=== PATIENT | female | born 1970 | race Two or more races ===

== ENCOUNTER 2025-03-02 19:26 | Emergency (ER) | payer MEDICAID, SELFPAY ==
[2025-03-02 19:29] VITALS: BMI 39.4
[2025-03-02 20:24] VITALS: BP 136/87; PULSE 89; RESP 18; TEMP 36.6; O2SAT 99
--- NOTE | 2025-03-02 20:27 | XR_ITS ---
Examination: Hand, left 3 views Technique: Hand AP, oblique, lateral 3 views Date and time of exam: March 02, 2025 2105 hours INDICATIONS: Dog bite today to the hand with hand pain FINDINGS: Acute comminuted fracture proximal aspect fifth metacarpal with at least 4 mm offset at the fracture site No opaque foreign body IMPRESSION: Acute comminuted fractures fifth metacarpal
--- NOTE | 2025-03-02 20:29 | PD.EDANIML ---
ED Animal Bite RME/HPI General Chief Complaint: Animal Bite Stated Complaint: DOG BITE TO LEFT HAND Time Seen by Provider: 03/02/25 20:22 Arrival date/time: 03/02/25 19:26 RME / HPI RME / HPI narrative: 54-year-old female patient came in for evaluation regarding dog bite to the left hand. Patient was walking with her dog and another dog attacked her and patient sustained dog bite to the left hand, dorsal and palmar aspect. Patient is able to bend and extend the fingers without any limitation. Tetanus vaccination is 2 years old. Patient told me that if she will see the dog again she will remember it. Related Data Home Medications ?Medication ?Instructions ?Recorded ?Confirmed budesonide-formoterol HFA 160 2 puff inhalation BID 11/20/19 02/08/22 mcg-4.5 mcg/actuation aerosol inhaler (Symbicort) buspirone 15 mg tablet 15 mg PO TID 11/20/19 02/08/22 citalopram 40 mg tablet (Celexa) 40 mg PO QDAY 11/20/19 02/08/22 hydroxyzine HCl 25 mg tablet 25 mg PO QID PRN Anxiety 11/20/19 02/08/22 albuterol sulfate 90 mcg/actuation 2 puff inhalation QID PRN Dyspnea 04/28/20 02/08/22 aerosol inhaler ramipril 10 mg capsule 10 mg PO BID 04/28/20 02/08/22 alprazolam 0.25 mg tablet 0.25 mg PO QDAY 07/11/21 02/08/22 doxazosin 2 mg tablet 2 mg PO QDAY 07/11/21 02/08/22 ferrous sulfate 325 mg (65 mg 325 mg PO TID 07/11/21 02/08/22 iron) tablet hydrochlorothiazide 25 mg tablet 25 mg PO QDAY 07/11/21 02/08/22 Previous Rx's ?Medication ?Instructions ?Recorded ibuprofen 600 mg tablet 600 mg PO Q8H PRN pain #30 tabs 07/12/21 clindamycin HCl 300 mg capsule 300 mg PO Q6H #28 caps 03/02/25 ibuprofen 800 mg tablet 800 mg PO TID PRN pain #30 tabs 03/02/25 Allergies Allergy/AdvReac Type Severity Reaction Status Date / Time cefoxitin Allergy Verified 05/15/25 19:27 Review of Systems Review of Systems Narrative Review of Systems: Review of system reviewed and within normal limits except mentioned in HPI ED Exam Narrative Physical exam: VITAL SIGNS: Reviewed. GENERAL APPEARANCE: Alert and interactive, follows commands, no acute distress, HEAD AND FACE: Non-traumatic. ENT: PERRL, pink conjunctivitis, eyelid no trauma, Mucous membrane moist. NECK: Supple, nontender, no nuchal rigidity. GENITAL: Deferred. NEUROLOGICAL: Gross motor function intact sensory function intact, Appropriate for age. MUSCULOSKELETAL: low back nontender, full range of motion. EXTREMITIES: +1 cm laceration, left hand dorsal aspect and 1 cm also laceration left hand palmar aspect, full range of motion. SKIN: Color pink, dry, no rash, no lacerations, no abrasions, no contusions. LYMPHATICS: Deferred. Course Quality Measures none Orders Category Date Time Status XR hand LT 2V Stat Exams 03/02/25 20:27 Completed Clindamycin [Cleocin] Med 03/02/25 20:27 Discontinued 300 mg PO X1 ONE Ketorolac Inj [Toradol Inj] Med 03/02/25 20:27 Discontinued 30 mg IM X1 ONE Lidocaine 1% 20 ml [Xylocaine 1% 20 ML] Med 03/02/25 20:27 Discontinued 10 ml IM X1 ONE Vital Signs Vital signs: Vital Signs Temperature 98 F 03/02/25 20:24 Pulse Rate 89 03/02/25 20:24 Respiratory Rate 18 03/02/25 20:24 Blood Pressure 136/87 H 03/02/25 20:24 Pulse Oximetry (%) 99 03/02/25 20:24 Oxygen Delivery Method Room Air 03/02/25 20:24 Procedures -ED Laceration Laceration 1: Site: hand Size (cm): 1 Description: linear Depth: simple, single layer Local Anesthetic: lidocaine 1% Amount of anesthesia used (mL): 5 Pre-repair: wound explored and irrigated extensively (Patient hand was soaked with 1 L of NS with Betadine, I also washed the hand with 1 L of NS and Betadine) Skin layer closed with: nylon Size (cm): 4-0 Number of sutures: 3 Technique: simple, interrupted Animal Bite MDM Narrative MDM Narrative:: 54-year-old female patient came in for evaluation regarding dog bite to the left hand. Patient was walking with her dog and another dog attacked her and patient sustained dog bite to the left hand, dorsal and palmar aspect. Patient is able to bend and extend the fingers without any limitation. Tetanus vaccination is 2 years old. Patient told me that if she will see the dog again she will remember it. X-ray of the hand showed comminuted fracture of the fifth metacarpal. Results discussed with the patient. Patient received clindamycin p.o. Patient was advised to closely follow-up with PCP and for referral to hand surgeon for definitive management of the metacarpal fracture. Patient was also advised to return to emergency room for any sign of infection of the hand like pus like drainage, redness, swelling, pain Patient was placed on a boxer splint, distal neurovascular status for splinting. Patient data External records reviewed:: None Clinical information provided by:: patient Social determinants that could affect healthcare access:: none Patient has the following chronic illnesses:: None How is presenting disease/condition affected by chronic disease/condition?: no chronic disease Evaluation data The following diagnostics were reviewed and interpreted by me:: radiology exam(s) Lab and/or radiology exams considered but not ordered:: None Interpretation Summary: See results in MDM Medications / Prescriptions Medications or Prescriptions considered but not ordered:: None Medication administrations:: Medication Administration History Discontinued Medications Clindamycin HCl (Clindamycin 150 Mg Capsule) 300 mg PO X1 ONE Stop: 03/02/25 20:28 Last Admin: 03/02/25 21:02 Dose: 300 mg Documented By: Ketorolac Tromethamine (Ketorolac Inj 60 Mg/2 Ml Vial) 30 mg IM X1 ONE Stop: 03/02/25 20:28 Last Admin: 03/02/25 21:04 Dose: 30 mg Documented By: Lidocaine HCl (Lidocaine Hcl 1% 20 Ml Vial) 10 ml IM X1 ONE Stop: 03/02/25 20:28 Last Admin: 03/02/25 21:01 Dose: 10 ml Documented By: Toradol IM, clindamycin p.o. Consultations Consultation(s) initiated? (list below): No Diagnosis Differential diagnosis animal bite: bite by animal, dog bite and other (Fracture of the fifth metacarpal) Most likely diagnosis given after review of the tests above:: Fracture of the fifth metacarpal, dog bite Admission Indicated Admission indicated?: not indicated Admission Request Was there a request for admission?: No Disposition Plan Disposition Plan: Discharge Discharge Attestation Discharge Attestation: The patient was given an opportunity to ask questions and understood the discharge instructions. Discharge instructions specifically effects, indications for sooner follow up or return to the emergency department, and the expected course of current diagnosis. Patient condition: Stable Discharge Plan Plan Patient Disposition: HOME (Self Care) Discharge Disposition comment: Stable Prescriptions/Referrals Prescriptions/Med Rec: New clindamycin HCl 300 mg capsule 300 mg PO Q6H Qty: 28 0RF ibuprofen 800 mg tablet 800 mg PO TID PRN (Reason: pain) Qty: 30 0RF No Action alprazolam 0.25 mg Tablet 0.25 mg PO QDAY hydrochlorothiazide 25 mg Tablet 25 mg PO QDAY doxazosin 2 mg Tablet 2 mg PO QDAY ferrous sulfate 325 mg (65 mg iron) tablet 325 mg PO TID ibuprofen 600 mg tablet 600 mg PO Q8H PRN (Reason: pain) Qty: 30 0RF citalopram [Celexa] 40 mg Tablet 40 mg PO QDAY hydroxyzine HCl 25 mg Tablet 25 mg PO QID PRN (Reason: Anxiety) buspirone 15 mg Tablet 15 mg PO TID budesonide-formoterol [Symbicort] 160-4.5 mcg/actuation Hfa Aerosol Inhaler 2 puff INHALATION BID albuterol sulfate 90 mcg/actuation Hfa Aerosol Inhaler 2 puff INHALATION QID PRN (Reason: Dyspnea) ramipril 10 mg Capsule 10 mg PO BID Problem List Clinical Impression: Dog bite of hand, Fracture of fifth metacarpal bone Patient/Caregiver Discharge Instructions Discharge Activity: activity as tolerated Education Materials: ED Dog Bite Additional Instructions: Thank you for the opportunity for serving you today. You are stable for discharged . You are advised to: Follow-up with your PCP in 1 to 2 days and as per referral to hand surgeon Return to ED for worsening of symptoms, redness, swelling, puslike drainage, fever, worsening hand pain Increase oral fluids Take medication as prescribed Daily dressing with bacitracin, wear your splint until cleared by hand surgeon at least minimal 4 weeks For removal of sutures in 10 days Please report these do bite to the county, and quarantine the dog for 2-week if something happened to the dog, please return to the emergency room right away for rabies shots Print Language: Frisian Stand Alone Forms: Silvia Award Info., Patient Portal Info Letter PA/CHILDCARE DIRECTOR Supervising Physician PA/CHILDCARE DIRECTOR Supervising Physician: MD Deborah
[2025-03-02] MEDS: LIDOCAINE HCL 1% 20 ML VIAL 10 ML IM (21:01)
[2025-03-02] MEDS: CLINDAMYCIN 150 MG CAPSULE 300 MG PO (21:02)
[2025-03-02] MEDS: KETOROLAC INJ 60 MG/2 ML VIAL 30 MG IM (21:04)
== END 2025-03-02 21:55 | disposition home or self-care (01) ==
LOC: SERX 22:20
PROVIDERS: Emergency Provider Emergency Medicine
DX: S61.452A Open bite of left hand, initial encounter (principal); S62.307A Unspecified fracture of fifth metacarpal bone, left hand, initial encounter for closed fracture; W54.0XXA Bitten by dog, initial encounter
CPT/HCPCS: 12001; 73120; 96372; 99283; J1885; J3490; A9270

== ENCOUNTER 2025-03-04 07:33 | Emergency (ER) | payer MEDICAID, SELFPAY ==
[2025-03-04 07:40] VITALS: BP 153/78; PULSE 55; RESP 18; TEMP 36.7; O2SAT 98; BMI 41.8
--- NOTE | 2025-03-04 08:25 | PD.EDWOUND ---
ED Wound/Laceration-RME/HPI General Chief Complaint: Wound Recheck / Suture Removal Stated Complaint: DOG BITE WOUND RE-CHECK Time Seen by Provider: 03/04/25 07:44 Arrival date/time: 03/04/25 07:33 This is a 54-year-old female who was seen approximately 3 days ago in the emergency room after dog bite to the left hand. Per patient patient was walking with her dog and another dog attacked her and patient sustained dog bite to the left hand, dorsal and palmar aspect. Patient is able to bend and extend the fingers without any limitation. X-ray of the hand showed comminuted fracture of the fifth metacarpal. Related Data Home Medications ?Medication ?Instructions ?Recorded ?Confirmed budesonide-formoterol HFA 160 2 puff inhalation BID 11/20/19 02/08/22 mcg-4.5 mcg/actuation aerosol inhaler (Symbicort) buspirone 15 mg tablet 15 mg PO TID 11/20/19 02/08/22 citalopram 40 mg tablet (Celexa) 40 mg PO QDAY 11/20/19 02/08/22 hydroxyzine HCl 25 mg tablet 25 mg PO QID PRN Anxiety 11/20/19 02/08/22 albuterol sulfate 90 mcg/actuation 2 puff inhalation QID PRN Dyspnea 04/28/20 02/08/22 aerosol inhaler ramipril 10 mg capsule 10 mg PO BID 04/28/20 02/08/22 alprazolam 0.25 mg tablet 0.25 mg PO QDAY 07/11/21 02/08/22 doxazosin 2 mg tablet 2 mg PO QDAY 07/11/21 02/08/22 ferrous sulfate 325 mg (65 mg 325 mg PO TID 07/11/21 02/08/22 iron) tablet hydrochlorothiazide 25 mg tablet 25 mg PO QDAY 07/11/21 02/08/22 Previous Rx's ?Medication ?Instructions ?Recorded ibuprofen 600 mg tablet 600 mg PO Q8H PRN pain #30 tabs 07/12/21 clindamycin HCl 300 mg capsule 300 mg PO Q6H #28 caps 03/02/25 ibuprofen 800 mg tablet 800 mg PO TID PRN pain #30 tabs 03/02/25 Allergies Allergy/AdvReac Type Severity Reaction Status Date / Time cefoxitin Allergy Verified 03/04/25 07:37 Review of Systems Review of Systems Systems Reviewed: All systems reviewed, normal except as documented Past Medical History Past Medical History NEUROLOGIC: Positive Neurological Disorders and Migraine (DUE TO COVID POS 04/2020 NOT HOSP MILD); Negative Seizures CARDIAC: Positive Cardiac Disorders (Hypertension) and Hypertension (TAKES MED); Negative Congestive Heart Failure, Edema, Cellulitis or Varicose Veins RESPIRATORY: Negative Chronic Obstructive Pulmonary Disease (COPD), Asthma, Tuberculosis, Pulmonary Embolism or Sleep Apnea GASTROINTESTINAL: Positive Gastrointestinal Disorders, Gall Bladder Disease (LAP) and Gastroesophageal Reflux Disease; Negative Hepatitis GENITOURINARY: Negative Genitourinary Disorders or Renal Disease REPRODUCTIVE: Positive Previous Pregnancies (X3) MUSCULOSKELETAL: Positive Musculoskeletal Disorders and Arthritis ENDOCRINE: Negative Endocrine Disorders, Diabetes Mellitus Type 1 or Diabetes Mellitus Type 2 HEMATOLOGIC: Positive Blood Disorders and Anemia (TAKES IRON); Negative Sickle Cell Disease PSYCHO/SOCIAL: Positive Depression (TAKES MED) and Anxiety (TAKES MED) OTHER HISTORY: Positive Chicken Pox; Negative Hospitalization, Autoimmune Disease, Shingles, Falls, Blood Transfusions, Anesthesia Reactions, Chemotherapy, Radiation Therapy, MRSA, Measles, Mumps or Cancer Family History FAMILY HISTORY: Positive Family Respiratory Disorders (MOTHER,SISTER (ASTHMA),MOTHER (VALLEY FEVER)), Family Cardiac Disorders (FATHER (AFIB)FATHER,MOTHER (HTN,CHOLESTEROL)) and Family Surgery (MOTHER,FATHER,BROTHER,SISTER); Negative Family Psychiatric Problems, Family Gastrointestinal Problems, Family Cancer or Family Anesthesia Reaction Surgical History SURGICAL: Positive Tubal Ligation and Section (X3); Negative Pacemaker Social History SMOKING STATUS: Current every day smoker SUBSTANCE USE: does not use ED Exam General General appearance: Present alert and in no apparent distress Head Head exam: Present atraumatic Eye Eye exam: Present normal appearance, PERRL and EOMI ENT ENT exam: Present normal exam, normal oropharynx and mucous membranes moist Neck Neck exam: Present normal inspection, full ROM and trachea midline Chest Chest inspection: Present normal inspection and symmetric chest wall rise Respiratory Respiratory exam: Present other (breathing even and unlabored) Cardiovascular Cardiovascular exam: Present regular rate and other (cap refill less than 2 seconds ) Abdominal Exam Abdominal exam: Present soft Extremities Exam Extremities exam: Present normal inspection and full ROM Back Exam Back exam: Present normal inspection and full ROM Neurological Exam Neurological exam: Present alert, oriented X3 and CN II-XII intact Psychiatric Psychiatric exam: Present normal affect and normal mood Skin Skin exam: Present warm, dry and other (left hand has wounds to dorsal and nix side, hand mildly swollen, pustule approx 0.25cm left hand ) Course Quality Measures none Vital Signs Vital signs: Vital Signs Temperature 98.0 F 03/04/25 07:40 Pulse Rate 55 L 03/04/25 07:40 Respiratory Rate 18 03/04/25 07:40 Blood Pressure 153/78 H 03/04/25 07:40 Pulse Oximetry (%) 98 03/04/25 07:40 Oxygen Delivery Method Room Air 03/04/25 07:40 Wound / Laceration MDM Narrative MDM Narrative:: Dicussed case with and pt has a new pus like area appro 0.25cm, opened it. very little fluid removed Patient was also advised to return to emergency room for any sign of infection of the hand like pus like drainage, redness, swelling, pain. Pt previously told Patient was advised to closely follow-up with PCP and for referral to hand surgeon for definitive management of the metacarpal fracture. Patient was placed on a boxer splint, distal neurovascular status for splinting. Patient data External records reviewed:: [facility] previous records Clinical information provided by:: patient Social determinants that could affect healthcare access:: none Patient has the following chronic illnesses:: none How is presenting disease/condition affected by chronic disease/condition?: no chronic disease Evaluation data The following diagnostics were reviewed and interpreted by me:: radiology exam(s) Lab and/or radiology exams considered but not ordered:: none Interpretation Summary: see note Medications / Prescriptions Medications or Prescriptions considered but not ordered:: none Medication administrations:: none Consultations Consultation(s) initiated? (list below): No Diagnosis Wound Differential Diagnosis: laceration and other (abscess, fracture ) Most likely diagnosis given after review of the tests above:: fracture with lacerations Admission Indicated Admission indicated?: not indicated Admission Request Was there a request for admission?: No Disposition Plan Disposition Plan: Discharge Discharge Attestation Discharge Attestation: The patient and all family members were given an opportunity to ask questions and understood the discharge instructions. Discharge instructions specifically effects, indications for sooner follow up or return to the emergency department, and the expected course of current diagnosis. Patient condition: Stable Discharge Plan Plan Patient Disposition: HOME (Self Care) Patient condition on transfer: Stable Prescriptions/Referrals Prescriptions/Med Rec: No Action alprazolam 0.25 mg Tablet 0.25 mg PO QDAY hydrochlorothiazide 25 mg Tablet 25 mg PO QDAY doxazosin 2 mg Tablet 2 mg PO QDAY ferrous sulfate 325 mg (65 mg iron) tablet 325 mg PO TID ibuprofen 600 mg tablet 600 mg PO Q8H PRN (Reason: pain) Qty: 30 0RF citalopram [Celexa] 40 mg Tablet 40 mg PO QDAY hydroxyzine HCl 25 mg Tablet 25 mg PO QID PRN (Reason: Anxiety) buspirone 15 mg Tablet 15 mg PO TID budesonide-formoterol [Symbicort] 160-4.5 mcg/actuation Hfa Aerosol Inhaler 2 puff INHALATION BID albuterol sulfate 90 mcg/actuation Hfa Aerosol Inhaler 2 puff INHALATION QID PRN (Reason: Dyspnea) ramipril 10 mg Capsule 10 mg PO BID clindamycin HCl 300 mg capsule 300 mg PO Q6H Qty: 28 0RF ibuprofen 800 mg tablet 800 mg PO TID PRN (Reason: pain) Qty: 30 0RF Referrals: Kylah Barnes FNP-C [Primary Care Provider] - In 1 week Problem List Clinical Impression: Dog bite of hand Patient/Caregiver Discharge Instructions Discharge Activity: activity as tolerated Education Materials: ED Animal Bite (General) Additional Instructions: Keep scheduled appointment with primary provider. May take splint off to assess wound. Come back to the emergency room if symptoms change or worsen. Print Language: Spanish Stand Alone Forms: Silvia Award Info., Patient Portal Info Letter TACOS/QUINTON Supervising Physician RO Supervising Physician: mi
== END 2025-03-04 09:33 | disposition home or self-care (01) ==
PROVIDERS: Emergency Provider Emergency Medicine
DX: S61.452A Open bite of left hand, initial encounter (principal); W54.0XXA Bitten by dog, initial encounter; S62.307A Unspecified fracture of fifth metacarpal bone, left hand, initial encounter for closed fracture
CPT/HCPCS: 99281